=== PATIENT | male | born 2000 | race Caucasian/White ===

== ENCOUNTER 2022-03-10 09:20 | Emergency (ER) | payer BC ==
[2022-03-10 09:34] VITALS: BP 126/77; PULSE 57; RESP 15; TEMP 97.9; BMI 29.6
== END 2022-03-10 10:05 | disposition home or self-care (01) ==
LOC: FER 09:20
DX: S89.91XA Unspecified injury of right lower leg, initial encounter (principal); X50.9XXA Other and unspecified overexertion or strenuous movements or postures, initial encounter
CPT/HCPCS: 73562-TC-RT-FY; 99283-25